=== PATIENT | female | born 1960 | race Caucasian/White ===

== ENCOUNTER 2018-05-21 13:17 | Emergency (ER) | payer SELFPAY ==
[2018-05-21 13:18] VITALS: BP 188/97; PULSE 87; RESP 16; TEMP 37.1; O2SAT 96; BMI 33.4
--- NOTE | 2018-05-21 14:05 | ED.DCSUM_ITS ---
- ER Visit Summary Date of Service: 05/21/18 Chief Complaint: [] Left lower extremity edema for about a month History of Present Illness: The patient is a 57 F [] patient denies any past history, she indicates for about a month she has had swelling to her left lower extremity she indicates she believes the years ago she may have had a superficial DVT involving her right lower extremity. She does not have full details of that history, she has no past history otherwise no medications no risk factors, no fever no cough no trauma no history of arthritis or other conditions she simply wanted the edema checked out so she came to the emergency department today there is been no change, she has no history of heart lung liver disease bowel bladder habits been normal no chest pain fever cough Physical Examination: [] Vital signs are within normal range General, no distress resting comfortably HEENT is generally unremarkable The neck is supple no adenopathy Cardiovascular, regular rate and rhythm Lungs, clear bilateral Abdomen, soft nontender Extremities, edema bilaterally and there is prominence of superficial vessels however the edema to the right leg is about a 1 the edema to the left leg is about a 4 both legs are nontender, she has full range of motion at the hips knees ankles and feet she has intact dorsalis pedis pulses the skin is intact there is no cords she has normal dorsi and plantar flexion there is no pain to the leg there is no specific medial pain to the thigh Neurologic, awake alert answering questions appropriately moving all 4 extremities Test Results: [] Emergency Department Course and Treatment: [] A long conversation with the patient her family we discussed an evaluation including labs x-rays EKG for the edema she declined that stating she just was concerned about the focal edema to the left leg duplex scanning is unavailable at this time, at this time to be discharged home to continue her current management and follow-up for duplex scan tomorrow she will be referred to outpatient [place] on-call for primary care referral and return for change in symptoms Treatment Plan: [] Disposition: [] Home stable, declined ED workup, duplex scan outpatient tomorrow Impression: [] Unilateral left lower extremity edema etiology unclear This note was generated with [employer] software. It may contain incorrect words, spelling, and punctuation that were not noted in review of the chart prior to signing ED Disposition - Plan for ED Patient: Referrals: NOT,DEFINED [Primary Care Provider] -
--- NOTE | 2018-05-21 14:05 | ED.DEP ---
ED Disposition - Plan for ED Patient: Instructions: ED Leg Swelling Unilateral, ED DVT Referrals: NOT,DEFINED [Primary Care Provider] - Mario Rajput MD [STAFF PHYSICIAN] - Additional Instructions: Please follow-up for duplex scan of left leg for DVT tomorrow using the instruction sheet you were given
[2018-05-21 14:47] VITALS: BP 225/98; PULSE 87; RESP 16; O2SAT 97
== END 2018-05-21 14:51 | disposition home or self-care (01) ==
LOC: ED 14:18
PROVIDERS: Emergency Provider Emergency Medicine
DX: R60.0 Localized edema (principal)
CPT/HCPCS: 99282

== ENCOUNTER → 2018-05-22 10:40 | Outpatient (CLI) | payer SELFPAY ==
[2018-05-21 13:18] VITALS: BMI 33.4
--- NOTE | 2018-05-22 10:47 | VDLE_ITS ---
Reason For Study: LEG SWELLING RIGHT LEFT CFV is compressible, spontaneous, phasic, GSV is normal. competent and demonstrates normal CFV is compressible, spontaneous, phasic, augmentation. competent, and demonstrates normal Procedure augmentation. Exam performed in department. FV is compressible, spontaneous, phasic, competent and demonstrates normal augmentation. POP V is compressible, spontaneous, phasic, competent and demonstrates normal augmentation. T/P Trunk is compressible. PTV is compressible. LT PerV is compressible. Interpretation Summary Deep veins of the left lower extremity are patent and compressible segmentally. There is no evidence of left lower extremity deep vein thrombosis. Valvular competence appears intact within the proximal deep venous system on the left . The left greater saphenous vein appears patent and compressible segmentally. Ordering Physician: Bill Kapoor Referring Physician: Fritz Kapoor Performed By: Janell Romero RVT
== END ==
PROVIDERS: Referring Provider Emergency Medicine; Visit Provider Emergency Medicine
DX: R60.0 Localized edema (principal)
CPT/HCPCS: 93971

== ENCOUNTER 2022-01-14 07:46 | Outpatient (CLI) | payer BC, SELFPAY ==
--- NOTE | 2022-01-14 07:51 | CT_ITS ---
EXAM: CT LEFT UPPER EXTREMITY WITHOUT INTRAVENOUS CONTRAST CLINICAL INDICATION: PAIN TECHNIQUE: Helically acquired images were obtained of the left upper extremity without intravenous contrast. 2-D reformats were performed by the technologist. CTDIvol = ( 24.58 ) mGy, DLP = ( 622.07 ) mGycm This CT exam was performed using one or more of the following dose reduction techniques: automated exposure control, adjustment of the mA and/or kV according to patient size, and/or use of iterative reconstruction technique. This report was created using [employer] report [employer] technology. COMPARISON: None. FINDINGS: See Impression. CT/Extremity Upper without Contra IMPRESSION: 1. Acute comminuted impaction fracture involving the distal radius (intra-articular). 2. Mild to moderate degenerative changes involving the triscaphe joint and first carpometacarpal joint. 3. Old fracture involving the fourth distal metacarpal. Acute fracture involving the fifth metacarpal neck possibly superimposed on an old fracture. 4. Soft tissue swelling adjacent to the acute fracture sites. No significant hemorrhage or hematoma. 5. Joint effusion suspected along the width of the proximal carpal row Electronically Signed: Luis Fernando Eng MD at 21:35 EST ,
== END 2022-01-14 23:59 | disposition home or self-care (01) ==
LOC: CT 07:49
PROVIDERS: Visit Provider Specialist
DX: S52.572A Other intraarticular fracture of lower end of left radius, initial encounter for closed fracture (principal)
CPT/HCPCS: 73200

== ENCOUNTER → 2022-04-26 | Outpatient (CLI) | payer BC, SELFPAY ==
--- NOTE | 2022-04-26 10:20 | STRESSREP ---
Stress Test Report Exercise myocardial perfusion stress test. 61-year-old lady with a history of chest pain Stress protocol: Resting EKG demonstrates normal sinus rhythm with a rate of 64 bpm resting blood pressure is 142/92 mmHg. The patient exercised according to the regular Rios protocol for a total duration of 3 minutes and 37 seconds attaining a maximum heart rate of 160 bpm which was 101% of maximum predicted heart rate; the maximum workload was 6 metabolic equivalents. At rest there were no ST or T wave changes noted to suggest ischemia and at peak exercise upsloping ST changes only were noted which did not meet the criteria for ischemia. No clinical angina was noted the test was terminated due to the target heart rate being achieved/fatigue. The peak blood pressure was 232/100 mmHg. this was a hypertensive response to exercise. Rate-pressure product was 31,900. Myocardial perfusion protocol. 11.1 mCi of technetium 99m sestamibi was injected at rest. The patient exercised according to regular Rios protocol for total duration of 3 minutes and 37 seconds and at peak exercise 35.3 mCi of technetium 99m sestamibi was injected stress images were obtained stress and rest images were reconstructed in comparing the short axis vertical long and horizontal long axis. Gated images were also obtained. Perfusion SPECT analysis: Review of the stress images demonstrate normal uptake of tracer noted in all areas of the myocardium. The resting images similarly demonstrate normal uptake of tracer noted in all areas of the myocardium. No areas of reversibility are noted to suggest ischemia no previous infarct was noted. Gated SPECT analysis: The gated ejection fraction is 58%. Conclusion: Normal exercise myocardial perfusion stress test at a low to moderate workload which may affect sensitivity for detection of ischemia Preserved ejection fraction. Hypertensive response to exercise
== END | disposition home or self-care (01) ==
PROVIDERS: PCP Family Medicine; Visit Provider Internal Medicine Cardiovascular Disease
DX: R07.89 Other chest pain (principal); I10 Essential (primary) hypertension
CPT/HCPCS: 78452; 93017; A9500; A4216